=== PATIENT | male | born 1940 | race Caucasian/White ===

== ENCOUNTER 2017-07-12 15:13 | Emergency (ER) | payer MEDICARE, OTHER ==
[2015-11-28 19:52] VITALS: BMI 22.1
[~2017-07-12 15:13] MED LIST: ASPIRIN81 MG PO; ATIVAN2 MG PO; HYDROCODONE-APA1 TAB PO; NORVASC5 MG PO; PLAVIX75 MG PO; PRAVACHOL20 MG PO
== END 2017-07-12 16:23 | disposition home or self-care (01) ==
LOC: D.ER 15:13
DX: R53.1 Weakness (principal); G89.29 Other chronic pain

== ENCOUNTER 2018-07-10 14:53 | Inpatient (IN) | payer MEDICARE, OTHER ==
[~2018-07-10] VITALS: Ht 172.7 cm; Wt 70.3 kg
--- NOTE | ~2018-07-10 | MORECARE ---
CASE MANAGEMENT DISCHARGE SUMMARY PATIENT: MANUEL JACKSON UNIT: [id number] ADM DATE: 07/11/18 AGE: 78 : 41 SEX: M ROOM/BED: D.2209 AUTHOR: GORDO,DOC PHYSICIAN: REFERRING PHYSICIAN: DANIELLE BAEZA MD DATE OF SERVICE: 07/17/18 Discharge Plan Patient Name: MANUEL JACKSON Facility: 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 Patient lives home alone and plans to return there at discharge. He states his home is safe to return. He denies any home health or DME use. He is unsure who will take him home & would not give me an emergency contact. CM will continue to follow and assist with DC planning as needed Manager Cardiac Cath: Patsy Kelley DCPIA - Discharge Planning Initial Assessment Updated by [email or web address]: Patsy Kelley on 07/13/18 11:03 am * Is the patient Alert and Oriented? Yes * How many steps to enter\exit or inside your home? * PCP El * Pharmacy [facility] * Preadmission Environment Home Alone * ADLs Independent * Equipment None * Verbal permission to speak to the caregivers and representatives has been obtained from the patient. N/A * Community resources currently utilized None * Additional services required to return to the preadmission environment? No * Can the patient safely return to the preadmission environment? Yes * Has this patient been hospitalized within the prior 30 days at any hospital? No Last DP export: 07/13/18 11:10 a Patient Name: MANUEL JACKSON Page [phone] at 1104 All edits/amendments must be made on the electronic document DICTATION DATE: 07/17/181103 WATCH ELECTRICIAN: SANDY 07/17/181103 RPT#: [id number] DC DATE:07/14/18 STATUS: DIS IN [facility] [address] [place] [address] END OF REPORT
--- NOTE | ~2018-07-10 | MORECARE ---
CASE MANAGEMENT DISCHARGE SUMMARY PATIENT: MANUEL JACKSON UNIT: [id number] ADM DATE: 07/11/18 AGE: 78 : 41 SEX: M ROOM/BED: D.2209 AUTHOR: GORDO,DOC PHYSICIAN: REFERRING PHYSICIAN: DANIELLE BAEZA MD DATE OF SERVICE: 07/13/18 Discharge Plan Patient Name: MANUEL JACKSON Facility: [facility]:[place] : 1940 Planned Disposition: Home Anticipated Discharge Date: Discharge Date: Expected LOS: Initial Reviewer: [email or web address] Initial Review Date: 07/13/2018 Generated: 07/13/18 12:10 pm Comments DCP- Discharge Planning Updated by [email or web address]: Patsy Kelley on 07/13/18 10:[address] Patient Name: MANUEL JACKSON Admission Status: ER Accout number: [id number] Admission Date: 07-11-2018 : 1940 Admission Diagnosis: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 Patient lives home alone and plans to return there at discharge. He states his home is safe to return. He denies any home health or DME use. He is unsure who will take him home & would not give me an emergency contact. CM will continue to follow and assist with DC planning as needed Glove Maker: Patsy Kelley DCPIA - Discharge Planning Initial Assessment Updated by [email or web address]: Patsy Kelley on 07/13/18 11:03 am * Is the patient Alert and Oriented? Yes * How many steps to enter\exit or inside your home? * PCP El * Pharmacy [place] * Preadmission Environment Home Alone * ADLs Independent * Equipment None * Verbal permission to speak to the caregivers and representatives has been obtained from the patient. N/A * Community resources currently utilized None * Additional services required to return to the preadmission environment? No * Can the patient safely return to the preadmission environment? Yes * Has this patient been hospitalized within the prior 30 days at any hospital? No Patient Name: MANUEL JACKSON Page [phone] at 1110 All edits/amendments must be made on the electronic document DICTATION DATE: 07/13/181109 CARRIER DRIVER: SANDY 07/13/181109 RPT#: [id number] DC DATE: STATUS: ADM IN [facility] [address] [place] [address] END OF REPORT
[2018-07-10 15:29] LABS: BASOPHILS 0.3 % (0-2); EOSINOPHILS 0.3 % (0-7); HEMATOCRIT 41.7 % (42.0-54.0); HEMOGLOBIN 13.7 g/dL (13.5-17.5); IMMATURE GRANULOCYTES 0.1 % (0-5); LYMPHOCYTES 28.6 % (15-50); MCH 31.1 pg (26.0-34.0); MCHC 32.9 g/dL (31.0-37.0); MCV 94.6 fL (80.0-100.0); MEAN PLATELET VOLUME 11.1 fL (7.4-10.4); MONOCYTES 7.2 % (2-11); NEUTROPHILS 63.5 % (40-80); PLATELET COUNT 267 10x3/uL (130-400); RBC 4.41 10x6/uL (4.20-6.10); RDW 13.6 % (11.5-14.5); WBC 8.9 10x3/uL (4.8-10.8)
[2018-07-10 15:43] LABS: APPEARANCE CLEAR (CLEAR); BILIRUBIN NEGATIVE (NEGATIVE); COLOR YELLOW (YELLOW); GLUCOSE NEGATIVE (NEGATIVE); KETONE SMALL mg/dL (NEGATIVE); NITRITE NEGATIVE (NEGATIVE); PROTEIN TRACE mg/dL (NEGATIVE); SPECIFIC GRAVITY 1.025 (1.005-1.020); UROBILINOGEN NORMAL (NORMAL)
[2018-07-10 15:44] LABS: BACTERIA FEW /hpf (NONE SEEN); WHITE CELLS - URINE 0-5 /hpf (0-5)
[2018-07-10 15:50] LABS: ALBUMIN 3.9 g/dL (3.4-5.0); ALKALINE PHOSPHATASE 95 U/L (46-116); ALT (SGPT) 16 U/L (10-68); BILIRUBIN - TOTAL 0.92 mg/dL (0.2-1.3); CALC OSMOLALITY 286 mosm/kg (275-300); CALCIUM 9.3 mg/dL (8.5-10.1); CARBON DIOXIDE 27.9 mmol/L (21.0-32.0); CHLORIDE - SERUM 103 mmol/L (98-107); CREATININE - SERUM 1.1 mg/dL (0.6-1.3); GLUCOSE 120 mg/dL (74-106); POTASSIUM - SERUM 3.6 mmol/L (3.5-5.1); PROTEIN - SERUM 7.5 g/dL (6.4-8.2); SODIUM 142 mmol/L (136-145); UREA NITROGEN 21 mg/dL (7-18); eGFR NON AFRICAN AMERICAN 69 mL/min (90-120)
[2018-07-10 15:57] LABS: AMYLASE - SERUM 46 U/L (25-115); LIPASE 111 U/L (73-393)
[2018-07-10 15:59] LABS: TROPONIN-I < 0.017 ng/mL (0.000-0.060)
[2018-07-10 17:19] VITALS: BP 148/72
[2018-07-10 20:49] VITALS: BP 158/66
[2018-07-10 21:52] VITALS: BP 158/66; BMI 23.6
[2018-07-11 00:35] VITALS: BP 144/61
[2018-07-11 04:42] VITALS: BP 153/71
[2018-07-11 05:57] LABS: BASOPHILS 0.8 % (0-2); EOSINOPHILS 0.8 % (0-7); HEMATOCRIT 38.1 % (42.0-54.0); HEMOGLOBIN 12.4 g/dL (13.5-17.5); IMMATURE GRANULOCYTES 0.1 % (0-5); LYMPHOCYTES 26.5 % (15-50); MCH 30.8 pg (26.0-34.0); MCHC 32.5 g/dL (31.0-37.0); MCV 94.8 fL (80.0-100.0); MEAN PLATELET VOLUME 11.4 fL (7.4-10.4); MONOCYTES 7.4 % (2-11); NEUTROPHILS 64.4 % (40-80); PLATELET COUNT 246 10x3/uL (130-400); RBC 4.02 10x6/uL (4.20-6.10); RDW 13.7 % (11.5-14.5); WBC 7.5 10x3/uL (4.8-10.8)
[2018-07-11 06:17] LABS: ALBUMIN 3.1 g/dL (3.4-5.0); ALKALINE PHOSPHATASE 73 U/L (46-116); ALT (SGPT) 13 U/L (10-68); BILIRUBIN - TOTAL 0.81 mg/dL (0.2-1.3); CALC OSMOLALITY 283 mosm/kg (275-300); CALCIUM 8.2 mg/dL (8.5-10.1); CARBON DIOXIDE 26.3 mmol/L (21.0-32.0); CHLORIDE - SERUM 106 mmol/L (98-107); CREATININE - SERUM 0.9 mg/dL (0.6-1.3); GLUCOSE 92 mg/dL (74-106); POTASSIUM - SERUM 3.7 mmol/L (3.5-5.1); PROTEIN - SERUM 6.8 g/dL (6.4-8.2); SODIUM 142 mmol/L (136-145); eGFR NON AFRICAN AMERICAN 87 mL/min (90-120)
[2018-07-11 06:18] LABS: UREA NITROGEN 15 mg/dL (7-18)
[2018-07-11 08:33] VITALS: BP 106/67
[2018-07-11 11:01] VITALS: Ht 172.7 cm; Wt 70.3 kg
[2018-07-11 12:45] VITALS: BP 97/56
[2018-07-11 13:36] LABS: CKMB 5.3 U/L (0.0-3.6); CREATINE KINASE 125 UL (21-232); TROPONIN-I < 0.017 ng/mL (0.000-0.060)
[2018-07-11 19:22] LABS: CKMB 5.4 U/L (0.0-3.6); CREATINE KINASE 107 UL (21-232); TROPONIN-I < 0.017 ng/mL (0.000-0.060)
[2018-07-11 22:16] VITALS: BP 157/72
[2018-07-12 02:26] LABS: BASOPHILS 0.4 % (0-2); EOSINOPHILS 0.4 % (0-7); HEMATOCRIT 38.2 % (42.0-54.0); HEMOGLOBIN 12.5 g/dL (13.5-17.5); IMMATURE GRANULOCYTES 0.1 % (0-5); LYMPHOCYTES 28.8 % (15-50); MCH 30.6 pg (26.0-34.0); MCHC 32.7 g/dL (31.0-37.0); MCV 93.4 fL (80.0-100.0); MEAN PLATELET VOLUME 10.9 fL (7.4-10.4); MONOCYTES 7.8 % (2-11); NEUTROPHILS 62.5 % (40-80); PLATELET COUNT 224 10x3/uL (130-400); RBC 4.09 10x6/uL (4.20-6.10); RDW 13.3 % (11.5-14.5); WBC 6.7 10x3/uL (4.8-10.8)
[2018-07-12 02:58] LABS: CALC OSMOLALITY 279 mosm/kg (275-300); CALCIUM 8.3 mg/dL (8.5-10.1); CARBON DIOXIDE 28.3 mmol/L (21.0-32.0); CHLORIDE - SERUM 106 mmol/L (98-107); CKMB 4.4 U/L (0.0-3.6); CREATINE KINASE 94 UL (21-232); CREATININE - SERUM 0.9 mg/dL (0.6-1.3); GLUCOSE 94 mg/dL (74-106); MAGNESIUM - SERUM 1.9 mg/dL (1.8-2.4); POTASSIUM - SERUM 3.6 mmol/L (3.5-5.1); SODIUM 141 mmol/L (136-145); TROPONIN-I < 0.017 ng/mL (0.000-0.060); eGFR NON AFRICAN AMERICAN 87 mL/min (90-120)
[2018-07-12 02:59] LABS: UREA NITROGEN 11 mg/dL (7-18)
[2018-07-12 04:58] VITALS: BP 149/76
[2018-07-12 11:00] VITALS: BP 168/78
[2018-07-12 16:33] VITALS: BP 154/68
[2018-07-12 21:26] VITALS: BP 156/74
[2018-07-13 05:11] VITALS: BP 162/96
[2018-07-13 06:22] LABS: ALBUMIN 3.1 g/dL (3.4-5.0); ALKALINE PHOSPHATASE 69 U/L (46-116); ALT (SGPT) 14 U/L (10-68); BILIRUBIN - TOTAL 0.63 mg/dL (0.2-1.3); CALC OSMOLALITY 281 mosm/kg (275-300); CALCIUM 8.4 mg/dL (8.5-10.1); CHLORIDE - SERUM 107 mmol/L (98-107); CREATININE - SERUM 0.9 mg/dL (0.6-1.3); GLUCOSE 98 mg/dL (74-106); MAGNESIUM - SERUM 1.8 mg/dL (1.8-2.4); POTASSIUM - SERUM 3.7 mmol/L (3.5-5.1); PROTEIN - SERUM 6.1 g/dL (6.4-8.2); SODIUM 142 mmol/L (136-145); UREA NITROGEN 11 mg/dL (7-18); eGFR NON AFRICAN AMERICAN 87 mL/min (90-120)
[2018-07-13 06:47] LABS: BASOPHILS 0.7 % (0-2); EOSINOPHILS 1.7 % (0-7); HEMATOCRIT 36.7 % (42.0-54.0); HEMOGLOBIN 12.2 g/dL (13.5-17.5); IMMATURE GRANULOCYTES 0.2 % (0-5); LYMPHOCYTES 36.1 % (15-50); MCHC 33.2 g/dL (31.0-37.0); MCV 93.4 fL (80.0-100.0); MONOCYTES 10.3 % (2-11); PLATELET COUNT 226 10x3/uL (130-400); RBC 3.93 10x6/uL (4.20-6.10); RDW 13.4 % (11.5-14.5)
[2018-07-13 08:23] VITALS: BP 157/84
[2018-07-13 12:13] VITALS: BP 147/65
[2018-07-14 04:29] VITALS: BP 145/72
[2018-07-14 06:01] LABS: BASOPHILS 0.8 % (0-2); EOSINOPHILS 1.8 % (0-7); HEMATOCRIT 37.1 % (42.0-54.0); HEMOGLOBIN 12.3 g/dL (13.5-17.5); LYMPHOCYTES 33.2 % (15-50); MCH 30.5 pg (26.0-34.0); MCHC 33.2 g/dL (31.0-37.0); MCV 92.1 fL (80.0-100.0); MEAN PLATELET VOLUME 11.3 fL (7.4-10.4); MONOCYTES 10.4 % (2-11); NEUTROPHILS 53.8 % (40-80); PLATELET COUNT 257 10x3/uL (130-400); RBC 4.03 10x6/uL (4.20-6.10); RDW 13.1 % (11.5-14.5); WBC 6.2 10x3/uL (4.8-10.8)
[2018-07-14 06:30] LABS: ALBUMIN 3.1 g/dL (3.4-5.0); ALKALINE PHOSPHATASE 64 U/L (46-116); ALT (SGPT) 15 U/L (10-68); CALC OSMOLALITY 285 mosm/kg (275-300); CALCIUM 8.8 mg/dL (8.5-10.1); CARBON DIOXIDE 24.3 mmol/L (21.0-32.0); CHLORIDE - SERUM 107 mmol/L (98-107); CREATININE - SERUM 0.8 mg/dL (0.6-1.3); GLUCOSE 112 mg/dL (74-106); POTASSIUM - SERUM 3.2 mmol/L (3.5-5.1); PROTEIN - SERUM 6.5 g/dL (6.4-8.2); SODIUM 143 mmol/L (136-145); UREA NITROGEN 12 mg/dL (7-18); eGFR NON AFRICAN AMERICAN > 90 mL/min (90-120)
[2018-07-14 09:17] VITALS: BP 179/92
[2018-07-14] MEDS ORDERED: COLACE100 MG PO (09:51)
[2018-07-14] MEDS ORDERED: LEVAQUIN750 MG PO (09:52)
[2018-07-14] MEDS ORDERED: FLAGYL500 MG PO (09:52)
[2018-07-14] MEDS ORDERED: NORCO-10 PO (09:53)
[2018-07-14 12:43] VITALS: BP 162/79
== END 2018-07-14 15:45 | disposition home or self-care (01) | DRG 392 ==
LOC: D.ER 14:53 → D.EDHOLD 17:32 → D.MS 17:32 → OBSVTIME 17:33 → D.MS 17:48
PROVIDERS: Family Medicine
DX: K57.32 Diverticulitis of large intestine without perforation or abscess without bleeding (principal); I10 Essential (primary) hypertension; E86.0 Dehydration; I71.4 Abdominal aortic aneurysm, without rupture; R31.9 Hematuria, unspecified; E83.51 Hypocalcemia; F41.9 Anxiety disorder, unspecified; M25.522 Pain in left elbow

== ENCOUNTER 2019-04-17 13:55 | Observation (INO) | payer MEDICARE, OTHER ==
[~2019-04-17] VITALS: Ht 172.7 cm; Wt 77.3 kg
--- NOTE | ~2019-04-17 | HEMODYNAMI ---
PATIENT:MANUEL JACKSON MEDICAL RECORD: [id number] : 42 LOCATION:[facility] D.2122 [facility]# [id number] ADMISSION DATE: 04/17/19 Generatedon:04/18/201911:13 Patient name: MANUEL JACKSON Patient #: [id number] : 1940 Date of study: 04/18/2019 Page: Of Hemodynamic Procedure Report Patient Data Patient Demographics Procedure consent was obtained First Name: MANUEL Gender: Male Last Name: MANUEL : 1940 Patient #: [id number] Age: 79 year(s) Race: SSN: [id number] Additional ID: [id number] Contact details [address]: [address] [place] [address] State: [place] City: [place] Zip code: [address] Past Medical History Allergies: No known allergies Admission Admission Data Admission Date: 04/17/2019 Admission Time: 16:09 Arrival Date: 04/18/2019 Arrival Time: 0:00 Admit Source: Other Insurance Payor: Private Room #: D.2122 health insurance [facility] #: [id number] Height (in.): 67.72 BSA: 1.85 (m2) Height (cm.): 172 BMI: 24.34 (kg/m2) Weight (lbs.): 158.73 Weight (kg.): 72 Procedure Procedure Types Cath Procedure Diagnostic Procedure C [facility] w/Coronaries Procedure Description Procedure Date Procedure Date: 04/18/2019 Procedure Start Time: 10:58 Procedure End Time: 11:13 Procedure Staff Name Function Aldair Duvall MD Performing Physician Damion Wilson RT Monitor Jessika Aly RT Scrub Primo Mandel RT Scrub Jase Carrington RN Nurse Procedure Data Cath Procedure Fluoroscopy Diagnostic fluoroscopy Total fluoroscopy Time: 2.2 time: 2.2 min min Diagnostic fluoroscopy Total fluoroscopy dose: 313 dose: 313 mGy mGy Contrast Material Contrast Material Type Amount (ml) Isovue 300 78 Entry Location Entry Primary Successful Side Size Upsize Upsize Entry Closure Succes sful Closure Location (Fr) 1 (Fr) 2 (Fr) Remarks Device Remarks Femoral Right 5 Fr Exoseal artery Estimated blood loss: 5 ml Diagnostic catheters Device Type Used For End Catheter Placement MULTIPACK JL 4.0 5Fr Procedure catheter MULTIPACK 3DRC 5Fr Procedure catheter MULTIPACK Pigtail 5 Fr Procedure catheter Procedure Complications No complications Procedure Medications Medication Administration Route Dosage Oxygen etCO2 Nasal cannula 2 l/min Lidocaine 2% added to field 20 Heparin Flush Bag added to field 2 bags (1000units/500ml NS) 0.9% NaCl I.V. 100 ml/hr Versed I.V. 2 mg Fentanyl I.V. 50 mcg Versed I.V. 1 mg Fentanyl I.V. 50 mcg Versed I.V. 1 mg Hemodynamics Rest BSA: 1.85 (m2) O2 Consumption: Estimated: 212.83 (ml/min) O2 Consumption indexed : Estimated:115.04 (ml/min/m) Heart Rate: 71 (bpm) Pressure Samples Time Site Value (mmHg) Purpose Heart Use Rate(bpm) 11:08 LV 102/-8,4 Snapshot 71 11:08 AO 104/50(73) Pullback 71 11:08 LV 96/-4,12 Pullback 71 Gradients Valve Time Site 1 Site 2 Mean SEP/DFP Peak To Heart Use (mmHg) (sec/min) Peak Rate (mmHg) (bpm) Aortic 11:08 LV AO 0 4 0 71 96/-4,12 104/50(73) Calculations Valve P-P Mean Valve Index Valve Source Name Gradient Area Flow (cm2) Aortic 0 0 0 0 Snapshots Pre Cath Intra NCS Post Cath Vital Signs Time Heart Resp SPO2 etCO2 NIBP (mmHg) Rhythm Pain Sedation Rate (ipm) (%) (mmHg) Status Level (bpm) 10:43:24 74 18 98 0 138/81(112) NSR 3 (11) , 10(A) Tolerable 10:47:36 73 13 95 32.2 117/77(104) NSR 3 (11) , 10(A) Tolerable 10:51:42 73 17 96 34.4 126/72(110) NSR 3 (11) , 10(A) Tolerable 10:55:52 71 15 95 16.4 116/73(99) NSR 0 (11) , 9(A) No pain 10:59:59 70 15 97 33.7 105/67(81) NSR 0 (11) , 9(A) No pain 11:04:03 73 13 97 14.9 115/68(88) NSR 0 (11) , 9(A) No pain 11:08:13 74 17 97 35.9 95/60(82) NSR 0 (11) , 9(A) No pain 11:13:00 70 14 97 37.4 119/69(100) NSR 0 (11) , 10(A) No pain Medications Time Medication Route Dose Verified Delivered Reason Notes Eff ectiveness by by 10:46:38 Oxygen etCO2 2 Aldair Buffie used for Nasal l/min Jadiel Carrington RN procedure cannula 10:46:45 Lidocaine 2% added 20ml Aldair Aldair for local to vial Jadiel Duvall MD anesthetic field 10:46:51 Heparin Flush added 2 Aldair Aldair used for Bag to bags Jadiel Duvall MD procedure (1000units/500ml field NS) 10:46:59 0.9% NaCl I.V. 100 Aldair Buffie Per ml/hr Jadiel Carrington RN physician 10:52:31 Versed I.V. 2 mg Aldair Buffie for Jadiel Carrington RN sedation 10:52:37 Fentanyl I.V. 50 Aldair Buffie for mcg Jadiel Carrington RN sedation 10:58:20 Versed I.V. 1 mg Aldair Buffie for Jadiel Carrington RN sedation 10:58:24 Fentanyl I.V. 50 Aldair Buffie for mcg Jadiel Carrington RN sedation 11:02:27 Versed I.V. 1 mg Aldair Buffie for Jadiel Carrington RN sedation Procedure Log Time Note 9:59:48 Informed consent obtained and on chart 10:00:17 Insurance Payor : Private health insurance 10:00:34 Admit Source: Other 10:00:36 Arrival Date: 04/18/2019 12:00:00 AM 10:00:50 Patient Weight : 158.73 lbs 10:00:53 Patient Height : 67.72 inches 10:01:26 Lab Result : BUN 17 mg/dl 10:01:26 Lab Result : Hematocrit 40.5 % 10:01:26 Lab Result : Hemoglobin 13.6 g/dl 10:01:26 Lab Result : Creatinine 1.2 mg/dl 10:01:46 Diagnostic Cath Status : Elective 10:05:08 Patient allergic to No known allergies 10:06:14 ACC Patient presents with Unstable Angina CCS Anginal Class 4--Inability to carry out any physical activity w/o angina. Angina may occur at rest. 10:06:17 ACCPatient has been prescribed/administered the following anti-anginal medication within the last 2 weeks: Calcium Channel Blockers 10:06:20 Procedure Status Urgent Heart Cath (IP). 10:06:22 Time tracking: Regular hours (M-F 7:00 - 5:00) 10:06:25 Plan of Care:Hemodynamics will remain stable., Cardiac rhythm will remain stable., Comfort level will be maintained., Respiratory function will remain adequate., Patient/ family verbilizes understanding of procedure., Procedure tolerated without complication., Recovers from procedure without complications.. 10:06:36 H&P Date Dictated: 04/17/2019 Within 30 days and on chart.. 10:25:34 Damion Wilson RT(R) sent for patient. Start room use. 10:35:45 Patient received from Network [employer] II to CCL 1 Alert and oriented. Tansferred to table in Supine position. 10:35:47 Warm blankets applied, and teri hugger turned on for patient comfort. 10:35:48 Correct patient and procedure confirmed by team. 10:35:48 ECG and BP/O2 sat monitors applied to patient. 10:35:50 Pre-procedure instructions explained to patient. 10:35:53 Pre-op teaching completed and patient verbalized understanding. 10:35:57 Family unavailable. 10:35:57 Patient NPO since Midnight. 10:35:59 Is the patient allergic to Iodine/contrast media? No. 10:36:00 Is patient on blood thinner?No 10:36:01 Patient diabetic? No. 10:36:03 Previous problem with sedation/anesthesia? No ? 10:36:05 Snore? No 10:36:06 Sleep apnea? No 10:36:07 Deviated septum? No 10:36:08 Opens mouth fully? Yes 10:36:09 Sticks out tongue? Yes 10:36:10 Airway obstruction? No ? 10:36:12 Dentures? No ? 10:41:51 Pre procedure: right dorsailis pedis pulse 1+ Palpable, but thready & weak; easily obliterated 10:41:56 Patient pain scale 3/10 chest . 10:42:04 IV patent on arrival in right forearm with 0.9% NaCl at [facility]. 10:42:05 Lab results completed and on chart. 10:42:08 Right groin area was prepped with chlora-prep and draped in sterile fashion 10:42:09 Alarms reviewed by R. N. 10:42:09 Sharps counted by scrub and verified by R.N. 10:42:11 Use device set Femoral Dx 10:42:12 ACIST Syringe (33328) opened to sterile field. 10:42:12 Bag Decanter (2002S) opened to sterile field. 10:42:13 Medline Cath Pack ([id number]) opened to sterile field. 10:42:13 ACIST Hand Control (97444) opened to sterile field. 10:42:14 ACIST Manifold (37513) opened to sterile field. 10:42:15 Tegaderm 4 x 4 (1626W) opened to sterile field. 10:42:15 DIAGNOSTIC Multipack 5Fr catheter set (UI0282) opened to sterile field. 10:42:16 EMERALD Guide Wire (897-724) opened to sterile field. 10:42:17 SHEATH 5FR [place] (WPG527) opened to sterile field. 10:42:23 Vital chart was started 10:42:24 Baseline sample Acquired. 10:42:26 Rhythm: sinus rhythm 10:42:27 Full Disclosure recording started 10:46:38 Oxygen 2 l/min etCO2 Nasal cannula was administered by Jase Carrington RN; used for procedure; 10:46:45 Lidocaine 2% 20ml vial added to field was administered by Aldair Duvall MD; for local anesthetic; 10:46:51 Heparin Flush Bag (1000units/500ml NS) 2 bags added to field was administered by Aldair Duvall MD; used for procedure; 10:46:59 0.9% NaCl 100 ml/hr I.V. was administered by Jase Carrington RN; Per physician; 10:49:22 Physician arrived 10:49:22 --------ALL STOP TIME OUT------ 10:49:23 Final Timeout: patient, procedure, and site verified with staff and physician. All members of the team are in agreement. 10:49:26 Right groin site verified by team. 10:49:29 Fire Safety Assessment: A--An alcohol-based skin anteseptic being used preoperatively., C--Open oxygen or nitrous oxide is being used., D--An ESU, laser, or fiber-optic light is being used. 10:49:32 Physical assessment completed. ASA score P 2 - A patient with mild systemic disease as per Aldair Duvall MD. 10:51:41 2) 60-89 Mildly reduced kidney function, and other findings (as for stage 1) point to kidney disease. 10:51:45 Maximum allowable contrast dose (3.7 X eGFR X 0.75)172 ml. 10:51:48 Sedation plan: IV Moderate Sedation Medication:Versed, Fentanyl 10:52:31 Versed 2 mg I.V. was administered by Jase Carrington RN; for sedation; 10:52:37 Fentanyl 50 mcg I.V. was administered by Jase Carrington RN; for sedation; 10:54:45 Zero performed for pressure channel P1 10:58:20 Versed 1 mg I.V. was administered by Jase Carrington RN; for sedation; 10:58:24 Procedure started. 10:58:24 Fentanyl 50 mcg I.V. was administered by Jase Carrington RN; for sedation; 10:58:27 Local anesthetic to right femoral artery with Lidocaine 2% by Aldair Duvall MD.INITIAL ACCESS ONLY 10:58:34 A 5 Fr sheath was inserted into the Right Femoral artery 11:00:02 A MULTIPACK JL 4.0 5Fr catheter was advanced over the wire and used for Procedure. 11:00:46 LCA angiography performed. 11:02:11 Catheter exchanged over wire. 11:02:16 A MULTIPACK 3DRC 5Fr catheter was advanced over the wire and used for Procedure. 11:02:27 Versed 1 mg I.V. was administered by Jase Carrington RN; for sedation; 11:04:06 RCA angiography performed. 11:05:29 Catheter exchanged over wire. 11:05:34 A MULTIPACK Pigtail 5 Fr catheter was advanced over the wire and used for Procedure. 11:08:09 LV gram done using CUMMINS 11:08:12 Injector settings: Ml/sec: 10, Volume: 20, 11:08:13 LV hemodynamics recorded. 11:08:24 EF : 60 % 11:08:38 Catheter removed. 11:08:39 EXOSEAL 5Fr (EX500) opened to sterile field. 11:09:16 Sheath removed intact; hemostasis achieved with Exoseal to the Right Femoral artery. 11:11:27 Procedure ended.(Physican Out) 11:11:37 Fluoroscopy time 02.20 minutes. 11:11:41 Flurop Dose total: 313 11:11:41 Fluoroscopy dose: 313 mGy 11:11:48 Dose Area Product 71521 mGy/cm. 11:12:03 Contrast amount:Isovue 300 78ml. 11:12:06 Maximum allowable dose exceeded? No. 11:12:20 Sharps counted by scrub and verified by R.N. 11:12:21 Insertion/operative site no bleeding no hematoma. 11:12:23 Post-op/insertion site Right Femoral artery dressed using a 4 x 4 and Tegaderm. 11:12:26 Post right femoral artery:stable, soft, clean and dry 11:12:27 Post Procedure Pulses reassessed and unchanged 11:12:29 Post-procedure physical assessment completed. ASA score P 2 - A patient with mild systemic disease as per Aldair Duvall MD. 11:12:31 Post procedure rhythm: unchanged. 11:12:33 Estimated blood loss: 5 ml 11:12:34 Post procedure instruction explained to patient.Patient verbalizes understanding. 11:12:35 Patient needs reinforcement of post procedure teaching. 11:13:09 Procedure and supply charges have been captured, reviewed, submitted and are correct. 11:13:11 Procedure Complication : No complications 11:13:13 Vital chart was stopped 11:13:14 See physician's report for complete and final results. 11:13:15 Report given to PCU. 11:13:18 Patient transfered to PCU with Stretcher. 11:13:20 Procedure ended. 11:13:20 Full Disclosure recording stopped 11:13:26 End room use (Document Last) Device Usage Item Name Manufacture Quantity Catalog Hospital Part Current Minimal L ot# / Number Charge Number Stock Stock Serial# Code ACIST Acist 1 63831 [id number] [id number] [id number] 20 ENJORE (91115) [employer]ures [employer] Bag Microtek 1 097012 65854 316623 5 Decanter Medical Inc. (2002S) Medline Medline 1 [id number] 402983 16112 075362 5 Cath Pack ([id number]) ACIST Hand Acist 1 29217 816589 257682 028370 5 Control Medical (47551) Systems Inc ACIST Acist 1 63200 696261 544516 531349 5 Manifold Medical (32191) Systems Inc Tegaderm 4 3M 1 1626W 977774 903034 251562 5 x 4 (1626W) DIAGNOSTIC Cardinal 1 TF5449 139187 41902 741975 30 Multipack Health 5Fr catheter set (JW6257) EMERALD Cardinal 1 464-349 873007 657707 038568 5 Guide Wire Health (502-004) SHEATH 5FR Terumo 1 ZPW072 664915 920070 885719 5 [place] (DAD467) MULTIPACK Cardinal 1 297854 5 JL 4.0 5Fr Health catheter MULTIPACK Cardinal 1 382084 5 3DRC 5Fr Health catheter MULTIPACK Cardinal 1 814127 5 Pigtail 5 Health Fr catheter EXOSEAL 5Fr Cardinal 1 EX500 845955 372073 313515 10 (EX500) Health Signature Audit [place] Stage Time Signature Unsigned Intra-Procedure 04/18/2019 Damion Wilson 11:13:53 AM RT(R) Signatures Performing Physician : Signature : Aldair Duvall MD Date : Time : Monitor : Damion Wilson RT Signature : Date : Time : Nurse : Jase Carrington RN Signature : Date : Time : [facility] [address] [place] [place] [address]
[~2019-04-17 13:55] MED LIST changes: +COLACE100 MG PO; +FLAGYL500 MG PO; +LEVAQUIN750 MG PO; +NORCO-10 PO
[2019-04-17] MEDS ORDERED: NORVASC10 MG PO (14:08)
[2019-04-17 14:32] LABS: BASOPHILS 0.4 % (0-2); EOSINOPHILS 1.1 % (0-7); HEMATOCRIT 40.5 % (42.0-54.0); HEMOGLOBIN 13.6 g/dL (13.5-17.5); IMMATURE GRANULOCYTES 0.1 % (0-5); LYMPHOCYTES 23.6 % (15-50); MCH 31.2 pg (26.0-34.0); MCHC 33.6 g/dL (31.0-37.0); MCV 92.9 fL (80.0-100.0); MEAN PLATELET VOLUME 11.2 fL (7.4-10.4); MONOCYTES 6.3 % (2-11); NEUTROPHILS 68.5 % (40-80); PLATELET COUNT 306 10x3/uL (130-400); RBC 4.36 10x6/uL (4.20-6.10); RDW 13.6 % (11.5-14.5); WBC 9.5 10x3/uL (4.8-10.8)
[2019-04-17 14:41] LABS: APTT 29.1 SECONDS (22.8-39.4); INR 1.04 (0.85-1.17); PROTIME 13.1 SECONDS (11.6-15.0)
[2019-04-17 14:44] LABS: ALBUMIN 3.9 g/dL (3.4-5.0); ALKALINE PHOSPHATASE 95 U/L (46-116); ALT (SGPT) 16 U/L (10-68); BILIRUBIN - TOTAL 0.74 mg/dL (0.2-1.3); CALC OSMOLALITY 283 mosm/kg (275-300); CALCIUM 8.8 mg/dL (8.5-10.1); CARBON DIOXIDE 25.4 mmol/L (21.0-32.0); CHLORIDE - SERUM 105 mmol/L (98-107); CREATININE - SERUM 1.2 mg/dL (0.6-1.3); GLUCOSE 150 mg/dL (74-106); POTASSIUM - SERUM 4.2 mmol/L (3.5-5.1); PROTEIN - SERUM 7.8 g/dL (6.4-8.2); SODIUM 140 mmol/L (136-145); UREA NITROGEN 17 mg/dL (7-18); eGFR NON AFRICAN AMERICAN 62 mL/min (90-120)
[2019-04-17 15:00] VITALS: BP 118/76
[2019-04-17 15:00] LABS: CKMB 0.6 U/L (0.0-3.6); CREATINE KINASE 43 UL (21-232); MAGNESIUM - SERUM 2.3 mg/dL (1.8-2.4)
[2019-04-17 15:03] LABS: TROPONIN-I < 0.017 ng/mL (0.000-0.060)
[2019-04-17 16:00] VITALS: BP 128/72
[2019-04-17 17:00] VITALS: BP 127/74
[2019-04-17 17:37] LABS: CKMB 0.6 U/L (0.0-3.6); CREATINE KINASE 26 UL (21-232)
[2019-04-17 17:40] LABS: TROPONIN-I < 0.017 ng/mL (0.000-0.060)
--- NOTE | 2019-04-17 18:15 | NUR ---
TRANSFER FRO ER BY W/C. OREINTED TO ROOM. CALL LIGHT IN REACH. WILL CONT. PLAN OF CARE.
--- NOTE | 2019-04-17 18:34 | NUR ---
recived from er per wc to room 2122.
--- NOTE | 2019-04-17 19:15 | NUR ---
REPORT RECEIVED, WILL CPOC. PATIENT IS A&OX4, UP AD ALEXEY. HE'S LYING ON RT SIDE, EYES CLOSED. PATIENT WILL HAVE CATH IN AM, INFORMED PATIENT HE'D BE NPO AT MIDNIGHT. NO S/SX OF DISTRESS NOTED, RR EVEN AND UNLABORED, SR ON MONITORS. IV TO RT AC TAMMY, AMRIT C/D/I, PATENT. PATIENT DENIES FURTHER NEEDS. CL IN REACH, BED LOCKED AND LOWERED. WILL CTM.
[2019-04-17 20:00] VITALS: BP 125/66; BP 129/72
[2019-04-17 23:45] LABS: CKMB 0.5 U/L (0.0-3.6); CREATINE KINASE 28 UL (21-232); TROPONIN-I < 0.017 ng/mL (0.000-0.060)
--- NOTE | 2019-04-17 23:51 | NUR ---
PATIENT REQUESTED PAIN MEDS, CALLED DR. ORTEGA. ORDER FOR ONE TIME 5MG NORCO PUT IN. ADMINISTERED MED TO PATIENT. WILL CTM.
[2019-04-18] VITALS: BP 125/66
[2019-04-18 04:00] VITALS: BP 113/52
[2019-04-18 04:14] VITALS: BP 125/66; Ht 172.7 cm; Wt 77.3 kg
[2019-04-18 05:21] LABS: CKMB 0.6 U/L (0.0-3.6); CREATINE KINASE 25 UL (21-232); TROPONIN-I < 0.017 ng/mL (0.000-0.060)
--- NOTE | 2019-04-18 07:17 | NUR ---
REPORT RECEIVED. WILL CONTINUE WITH POC. PT CURRENTLY LYING ON RIGHT SIDE RESTING. CALL LIGHT W/I REACH. PT IS AAO AND UP AD ALEXEY. RR EVEN AND UNLABORED ON RA. PIV IS SALINE LOCKED. PT IS NPO FOR HEART CATH. PT DENIES ANY NEEDS AT THIS TIME. NO S/S OF DISTRESS NOTED. WILL CTM.
[2019-04-18 08:21] VITALS: BP 117/59
--- NOTE | 2019-04-18 10:07 | NUR ---
PREOP MEDS ADMINISTERED PER CAREER DEVELOPMENT COUNSELOR REQUEST. NS INFUSING @50ML/HR VIA R.AC PIV. PT DENIES ANY NEEDS. WILL CTM.
--- NOTE | 2019-04-18 10:34 | NUR ---
PT TRANSFERED TO GRAPHIC USER INTERFACE DESIGNER. WILL CTM.
--- NOTE | 2019-04-18 10:36 | NUR ---
I have reviewed this patient and I concur with the Shift Assessment completed by the Licensed Practical Nurse today this shift.
--- NOTE | 2019-04-18 11:41 | NUR ---
PT RETURNED FROM GAS REGULATOR REPAIRER. RIGHT FEMORAL CATH SITE IS C/D/I WITH NO S/S OF HEMATOMA PRESENT. NO S/S OF DISTRESS NOTED. PT DENIES ANY NEEDS. WILL CTM.
--- NOTE | 2019-04-18 15:03 | MORECARE ---
CASE MANAGEMENT DISCHARGE SUMMARY PATIENT: MANUEL JACKSON UNIT: [id number] ADM DATE: 04/17/19 AGE: 79 : 41 SEX: M ROOM/BED: D.2122 AUTHOR: PREETHI CARO PHYSICIAN: REFERRING PHYSICIAN: SKYE CLEMENTS M.D. DATE OF SERVICE: 04/18/19 Discharge Plan Patient Name: MANUEL JACKSON Facility: [facility]:[place] : 1940 Planned Disposition: Home Anticipated Discharge Date: 04/18/19 Discharge Date: Expected LOS: 1 Initial Reviewer: [email or web address] Initial Review Date: 04/18/2019 Generated: 04/18/19 4:03 pm DCPIA - Discharge Planning Initial Assessment Updated by [email or web address]: Roberto Mccormack on 04/18/19 3:00 pm * Is the patient Alert and Oriented? Yes * How many steps to enter\exit or inside your home? * PCP DR. PAGAN * Pharmacy [facility] * Preadmission Environment Home Alone * ADLs Independent * Equipment None * Other Equipment NO MEDICAL EQUIPMENT PROVIDER PREFERENCE * List name and contact numbers for known caregivers / representatives who currently or will assist patient after discharge: NONE * Verbal permission to speak to the caregivers and representatives has been obtained from the patient. N/A * Community resources currently utilized None * Please name any agencies selected above. NONE * Additional services required to return to the preadmission environment? No * Can the patient safely return to the preadmission environment? Yes * Has this patient been hospitalized within the prior 30 days at any hospital? No Patient Name: MANUEL JACKSON Page 71318 at 1503 All edits/amendments must be made on the electronic document DICTATION DATE: 04/18/19 1503 COMMUNICATIONS EQUIPMENT OPERATOR: SANDY 04/18/19 1503 RPT#: [id number] DC DATE: STATUS: ADM IN [facility] [address] [place] [address] END OF REPORT
--- NOTE | 2019-04-18 15:06 | NUR ---
PT DISCHARGED HOME VIA TAXI. PT CHOSE TO WALK AND REFUSED WHEELCHAIR. PIV REMOVED WITH CATHETER TIP FULLY INTACT. PT SIGNED PROPER DISCHARGE INSTRUCTION AND REMOVED ALL VALUABLES FROM THE ROOM. TELEMETRY REMOVED AND RETURNED.
--- NOTE | 2019-04-18 15:12 | MORECARE ---
CASE MANAGEMENT DISCHARGE SUMMARY PATIENT: MANUEL JACKSON UNIT: [id number] ADM DATE: 04/17/19 AGE: 79 : 42 SEX: M ROOM/BED: D.9842 AUTHOR: GORDO,DOC PHYSICIAN: REFERRING PHYSICIAN: SKYE CLEMENTS M.D. DATE OF SERVICE: 04/18/19 Discharge Plan Patient Name: MANUEL JACKSON Facility: [facility]:Wolf : 1940 Planned Disposition: Home Anticipated Discharge Date: 04/18/19 Discharge Date: 04/18/2019 Expected LOS: 1 Initial Reviewer: [email or web address] Initial Review Date: 04/18/2019 Generated: 04/18/19 4:12 pm Comments DCP- Discharge Planning Updated by [email or web address]: Roberto Mccormack on 04/18/19 2:[address] Patient Name: MANUEL JACKSON Admission Status: ER Accout number: [id number] Admission Date: 04-17-2019 : 1940 Admission Diagnosis: Attending: SKYE CLEMENTS Current LOS: 1 Anticipated DC Date: 04-18-2019 Planned Disposition: Home Primary Insurance: MEDICARE A & B Discharge Planning Comments: CM SPOKE TO PT'S BEDSIDE NURSE WHO INFORMED CM THAT PT DROVE HIMSELF TO EMERGENCY ROOM, CANNOT DRIVE FOR 24 HOURS AND HAS NO RIDE HOME. CM MET WITH PT IN ROOM TO DISCUSS DISCHARGE PLANNING AND NEEDS. PT REPORTS LIVING AT HOME INDEPENDENTLY AND ALONE. PT HAS NO MEDICAL EQUIPMENT AND NO OUTSIDE SERVICES ASSISTING IN THE HOME. CM DISCUSSED AVAILABILITY OF HOME HEALTH, REHAB SERVICES AND MEDICAL EQUIPMENT. PT DENIES DISCHARGE NEEDS OTHER THAN A RIDE. HOME. THE [employer] BUS DOES NOT GO OUTSIDE [place] TO [facility] WHERE PT LIVES. CM OFFERED TO ASSIST PT WITH CALLING SOMEONE TO PICK HIM UP. PT DENIES HAVING ANY FAMILY, FRIENDS OR ACQUAINTANCES THAT MAY ASSIST HIM TODAY. CM EXPLAINED THAT INSURANCE IS NOT GOING TO PAY FOR ANOTHER NIGHT IN THE HOSPITAL AND EXPLAINED THAT PT IS IN AN OBSERVATION BED AND IF PT CHOSES TO STAY, HE MAY BE RESPONSIBLE FOR THE COSTS OF THE ADDITIONAL NIGHT IN THE HOSPITAL.. PT STATES HE WILL TRY TO CALL SOMEONE TO PICK HIM UP. CM EDUCATED PT ON THE AVAILAIBILTY OF [employer] SERVICES. CM LATER SPOKE TO BEDSIDE NURSE WHO INFORMED CM THAT INFORMED CM THAT PT WANTS TO CALL A [facility]. CM CALLED [facility], OBTAINED QUOTE FOR PATIENT TO PAY $32.00. PT STATES HE CAN PAY, CM PROVIDED PT THE PHONE NUMBER TO PAULINE AHMADII, [phone]. BEDSIDE NURSE NOTIFIED. Bounty Hunter: Roberto Mccormack DCPIA - Discharge Planning Initial Assessment Updated by [id number]: Roberto Mccormack on 04/18/19 3:00 pm * Is the patient Alert and Oriented? Yes * How many steps to enter\exit or inside your home? * PCP DR. PAGAN * Pharmacy HOME [facility] * Preadmission Environment Home Alone * ADLs Independent * Equipment None * Other Equipment NO MEDICAL EQUIPMENT PROVIDER PREFERENCE * List name and contact numbers for known caregivers / representatives who currently or will assist patient after discharge: NONE * Verbal permission to speak to the caregivers and representatives has been obtained from the patient. N/A * Community resources currently utilized None * Please name any agencies selected above. NONE * Additional services required to return to the preadmission environment? No * Can the patient safely return to the preadmission environment? Yes * Has this patient been hospitalized within the prior 30 days at any hospital? No Last DP export: 04/18/19 2:03 pm Patient Name: MANUEL JACKSON Page [id number] at 1512 All edits/amendments must be made on the electronic document DICTATION DATE: 04/18/191511 PIT LABORER: SANDY 04/18/19 151 RPT#: [id number] [place] DATE:04/18/19 STATUS: DIS IN [facility] [address] [place] [address] END OF REPORT
== END 2019-04-18 15:08 | disposition home or self-care (01) ==
LOC: D.ER 13:55 → D.M2 16:09 → OBSVTIME 16:26 → D.M2 04-18 15:08
PROVIDERS: Emergency Medicine; ADMIT Internal Medicine Cardiovascular Disease; ATTEND Internal Medicine Cardiovascular Disease
DX: I25.110 Atherosclerotic heart disease of native coronary artery with unstable angina pectoris (principal); I10 Essential (primary) hypertension

== ENCOUNTER 2019-04-23 22:53 | Emergency (ER) | payer MEDICARE, OTHER ==
[~2019-04-23] VITALS: Ht 172.7 cm; Wt 72.6 kg
[~2019-04-23 22:53] MED LIST changes: +NORVASC10 MG PO
[2019-04-23 22:56] VITALS: Ht 172.7 cm; Wt 72.6 kg
[2019-04-23] MEDS ORDERED: REQUIP0.25 MG (23:03)
[2019-04-23] MEDS ORDERED: PREDNISONE20 MG PO (23:42)
[2019-04-24 00:15] VITALS: BP 143/79
== END 2019-04-24 00:15 | disposition home or self-care (01) ==
LOC: D.ER 22:53
DX: M54.32 Sciatica, left side (principal); G89.29 Other chronic pain; I10 Essential (primary) hypertension

== ENCOUNTER 2021-01-10 10:55 | Observation (INO) | payer MEDICARE, OTHER ==
[~2021-01-10] VITALS: Ht 172.7 cm; Wt 72.7 kg
[2021-01-10] VITALS (7 sets, daily range): BP systolic 138–173; BP diastolic 66–83; Ht 172.7 cm; Wt 72.7 kg
--- NOTE | ~2021-01-10 | CN ---
PATIENT NAME:MANUEL JACKSON MEDICAL RECORD: [id number] : 42 LOCATION:D. D.2115 ADMIT DATE: 01/10/21 ACCOUNT: [id number] CONSULTING PHYSICIAN: REJI MARTINEZ MD REFERRING PHYSICIAN: YUSEF ROLDAN MD DATE OF CONSULTATION: 01/10/2021 HISTORY OF PRESENT ILLNESS: The patient is a 80-year-old male with history of atherosclerotic heart disease, PCI/stents, and hypertension, who presented via EMS with complaints of chest pain. The patient denies PND, orthopnea symptoms. Asked to evaluate from cardiovascular standpoint. PAST MEDICAL HISTORY: Significant for; 1. Atherosclerotic heart disease. 2. History of PCI/stent. 3. Complaints of chest pain -- nonexertional. 4. Hypertension. PHYSICAL EXAMINATION: GENERAL: Pleasant elderly white male lying in no apparent distress. VITAL SIGNS: Blood pressure 130s/60s, pulse 60s (regular). HEENT: Sclerae clear; conjunctivae pink. NECK: Supple; no appreciated JVD. HEART: Regular rhythm and rate. LUNGS: Clear bilaterally. ABDOMEN: Benign. EXTREMITIES: Negative for edema. NEUROLOGIC: Nonfocal. DIAGNOSTIC STUDIES: EKG, normal sinus rhythm, 73 beats per minute, no acute ST-T wave changes. MEDICATIONS: 1. Amlodipine 10 mg daily. 2. Lorazepam p.r.n. LABORATORY DATA: White blood cell count 5, hemoglobin and hematocrit 12.2 and 36.7 and platelet count is 226. Sodium 142, potassium 3.9, BUN of 24, creatinine 1. Troponin 0.017 (negative). BNP 70 (within normal limits). Toxicology positive for opiates and benzodiazepines. Influenza A, B, rapid negative. PT/INR 13/1.0. ASSESSMENT: 1. History of atherosclerotic heart disease. History of PCI/stents. 2. Chest pain/discomfort -- nonexertional. 3. Hypertension. PLAN: Continue current medical management at this time except we will restart aspirin 81 mg daily and Imdur 30 mg a day. There is no evidence of acute cardiac event/decompensation at this time. The patient will be scheduled for echocardiogram to assess LV function and valvular status. Further recommendations as clinically indicated. Thank you for allowing me to participate in the care of this patient. CONSULT REPORT [id number] MANUEL JACKSON TRANSINT:[id number] Voice Confirmation ID: [id number] DOCUMENT ID: [id number] REJI MARTINEZ MD CC: [id number] DICTATION DATE: 01/10/21 1414 MODERN AND CONTEMPORARY ART CURATOR: 01/10/212044 ADM IN [place] [id number] [place] [address]
[~2021-01-10 10:55] MED LIST changes: +PREDNISONE20 MG PO; +REQUIP0.25 MG
[2021-01-10 11:18] LABS: BASOPHILS 0.5 % (0-2); EOSINOPHILS 0.4 % (0-7); HEMATOCRIT 41.7 % (42.0-54.0); HEMOGLOBIN 13.3 g/dL (13.5-17.5); IMMATURE GRANULOCYTES 0.2 % (0-5); LYMPHOCYTE ABS# 1.54 10x3/uL (1.32-3.57); MCH 29.3 pg (26.0-34.0); MCHC 31.9 g/dL (31.0-37.0); MCV 91.9 fL (80.0-100.0); MEAN PLATELET VOLUME 10.9 fL (7.4-10.4); MONOCYTES 5.4 % (2-11); NEUTROPHIL ABS# 6.48 10x3/uL (1.78-5.38); NEUTROPHILS 75.5 % (40-80); PLATELET COUNT 303 10x3/uL (130-400); RBC 4.54 10x6/uL (4.20-6.10); RDW 13.3 % (11.5-14.5); WBC 8.6 10x3/uL (4.8-10.8)
[2021-01-10 11:29] LABS: APTT 28.2 SECONDS (22.8-39.4); INR 1.08 (0.85-1.17)
[2021-01-10 11:32] LABS: CALC OSMOLALITY 288 mosm/kg (275-300); CALCIUM 9.4 mg/dL (8.5-10.1); CARBON DIOXIDE 28.5 mmol/L (21.0-32.0); CHLORIDE - SERUM 105 mmol/L (98-107); GLUCOSE 130 mg/dL (74-106); POTASSIUM - SERUM 3.9 mmol/L (3.5-5.1); SODIUM 142 mmol/L (136-145); UREA NITROGEN 24 mg/dL (7-18); eGFR NON AFRICAN AMERICAN 76 mL/min (90-120)
[2021-01-10 11:49] LABS: ALBUMIN 3.8 g/dL (3.4-5.0); ALKALINE PHOSPHATASE 98 U/L (30-120); ALT (SGPT) 16 U/L (10-68); BILIRUBIN - TOTAL 0.88 mg/dL (0.2-1.3); CKMB 1.6 U/L (0.0-3.6); CREATINE KINASE 35 UL (21-232); MAGNESIUM - SERUM 2.4 mg/dL (1.8-2.4); PROTEIN - SERUM 7.5 g/dL (6.4-8.2)
[2021-01-10 11:52] LABS: TROPONIN-I < 0.017 ng/mL (0.000-0.060)
--- NOTE | 2021-01-10 14:41 | NUR ---
RECEIVED PT TO ROOM 2114 VIA WHEELCHAIR, PT ABLE TO AMBULATE FROM WHEELCHAIR TO BED WITH STEADY GATE. PT A/O X4, RESP EVEN AND NONLABORED ON RA. ORIENTED PT TO ROOM AND CALL LIGHT, WILL ASSESS PT AND START PLAN OF CARE.
--- NOTE | 2021-01-10 15:27 | NUR ---
2MG OF MORPHINE GIVEN FOR PAIN LEVEL OF 7/10. PROVIDED PT WITH SANDWICH AND SOMETHING TO DRINK. ALL NEEDS MET, CALL LIGHT IN REACH.
[2021-01-10 17:12] LABS: CKMB 1.5 U/L (0.0-3.6); CREATINE KINASE 36 UL (21-232)
[2021-01-10 17:14] LABS: TROPONIN-I < 0.017 ng/mL (0.000-0.060)
--- NOTE | 2021-01-10 17:16 | NUR ---
EKG DONE AND PLACED ON CHART. PT RESTING COMFORTABLY IN BED, DENIES ANY NEED. CALL LIGHT IN REACH.
--- NOTE | 2021-01-10 19:30 | NUR ---
RECEIVED REPORT, WILL ASSUME CARE OF PT, DENIES ANY NEEDS AT THIS TIME, BED IS LOW, SRX2, CALL LIGHT IN REACH, WILL CONTINUE PLAN OF CARE
[2021-01-11 00:47] LABS: CKMB 1.5 U/L (0.0-3.6); CREATINE KINASE 44 UL (21-232)
[2021-01-11 01:10] LABS: TROPONIN-I < 0.017 ng/mL (0.000-0.060)
[2021-01-11 04:13] VITALS: BP 140/67
--- NOTE | 2021-01-11 06:12 | NUR ---
I have reviewed this patient and I concur with the Shift Assessment completed by the Licensed Practical Nurse today this shift.
[2021-01-11 07:20] LABS: BASOPHILS 0.7 % (0-2); EOSINOPHILS 1.2 % (0-7); HEMATOCRIT 39.6 % (42.0-54.0); HEMOGLOBIN 12.6 g/dL (13.5-17.5); IMMATURE GRANULOCYTES 0.1 % (0-5); LYMPHOCYTE ABS# 1.89 10x3/uL (1.32-3.57); LYMPHOCYTES 27.7 % (15-50); MCH 29.2 pg (26.0-34.0); MCHC 31.8 g/dL (31.0-37.0); MCV 91.7 fL (80.0-100.0); MEAN PLATELET VOLUME 11.3 fL (7.4-10.4); MONOCYTES 6.3 % (2-11); NEUTROPHIL ABS# 4.37 10x3/uL (1.78-5.38); PLATELET COUNT 285 10x3/uL (130-400); RBC 4.32 10x6/uL (4.20-6.10); RDW 13.2 % (11.5-14.5); WBC 6.8 10x3/uL (4.8-10.8)
[2021-01-11 07:39] LABS: ALBUMIN 3.4 g/dL (3.4-5.0); ALKALINE PHOSPHATASE 88 U/L (30-120); ALT (SGPT) 15 U/L (10-68); BILIRUBIN - TOTAL 0.74 mg/dL (0.2-1.3); CALC OSMOLALITY 282 mosm/kg (275-300); CALCIUM 8.8 mg/dL (8.5-10.1); CARBON DIOXIDE 27.2 mmol/L (21.0-32.0); CHLORIDE - SERUM 105 mmol/L (98-107); CKMB 1.4 U/L (0.0-3.6); CREATINE KINASE 47 UL (21-232); CREATININE - SERUM 0.9 mg/dL (0.6-1.3); GLUCOSE 98 mg/dL (74-106); POTASSIUM - SERUM 4.1 mmol/L (3.5-5.1); PROTEIN - SERUM 6.6 g/dL (6.4-8.2); SODIUM 141 mmol/L (136-145); TROPONIN-I < 0.017 ng/mL (0.000-0.060); UREA NITROGEN 19 mg/dL (7-18); eGFR NON AFRICAN AMERICAN 86 mL/min (90-120)
[2021-01-11] MEDS ORDERED: ATIVAN1 MG PO (09:16)
[2021-01-11 09:19] VITALS: BP 138/72
--- NOTE | 2021-01-11 10:56 | NUR ---
PROVIDED VERBAL AND WRITTEN DISHCARGE TEACHING TO PT, WHO VERBALIZED UNDERSTANDING REGARDING TEACHING. D/C LT AC IV WITH CATHETER TIP INTACT. HEART MONITOR REMOVED AND CARINNE TO [employer] AND AGENCIES SUPERVISOR. CALLED [facility] FOR PT, [facility] WILL BE HERE IN 15-20MIN, THEY WILL CALL WHEN THEY ARE AT THE MAIN ENTRANCE.
--- NOTE | 2021-01-11 12:08 | NUR ---
PT REFUSED A WHEELCHAIR, LEFT UNIT VIA AMBULATORY WITH ALL BELONGINGS, ACCOMPANIED BY THIS NURSE, NAD NOTED.
== END 2021-01-11 12:08 | disposition home or self-care (01) ==
LOC: D.ER 10:55 → OBSVTIME 14:21 → D.M2 14:21
PROVIDERS: Family Medicine; ADMIT Emergency Medicine; ATTEND Emergency Medicine
DX: R07.89 Other chest pain (principal); I10 Essential (primary) hypertension; I25.10 Atherosclerotic heart disease of native coronary artery without angina pectoris; R11.0 Nausea; F41.9 Anxiety disorder, unspecified

== ENCOUNTER 2021-01-23 19:28 | Emergency (ER) | payer MEDICARE, OTHER ==
[~2021-01-23] VITALS: Ht 172.7 cm; Wt 72.7 kg
[~2021-01-23 19:28] MED LIST changes: +ATIVAN1 MG PO
[2021-01-23 19:32] VITALS: Ht 172.7 cm; Wt 72.7 kg
[2021-01-23] MEDS ORDERED: HYDROCODON-ACE1 EA10 PO (19:51)
[2021-01-23 20:05] VITALS: BP 156/93
== END 2021-01-23 20:05 | disposition home or self-care (01) ==
LOC: D.ER 19:28
DX: M79.605 Pain in left leg (principal); M79.604 Pain in right leg; G89.29 Other chronic pain; I10 Essential (primary) hypertension